=== PATIENT | female | born 1965 | race Caucasian/White ===

== ENCOUNTER → 2018-07-26 10:52 | Outpatient (CLI) | payer OTHER, SELFPAY ==
--- NOTE | 2018-07-26 12:37 | PCM.PN.BLA ---
Progress Note Winsome presents for left stereotactic breast biopsy for faint cluster of calcifications seen in the upper outer quadrant of the left breast. Review of the mammograms from [facility], show a circled area of very faint calcifications. Localization was done on the stereotactic biopsy table in both the LM and the CC view. However, stereotactic images failed to reveal a specific area to biopsy. Therefore patient to be scheduled for short term follow up in 3 months with repeat left breast mammograms.
--- OUTSIDE RECORDS SUMMARY | 2018-09-11 06:07 | XMS RPT_ITS ---
:1965 Author Organization OHIP Care Team Providers Name Role Phone ANNABELLA CARABALLO Referring Unavailable ANNABELLA CARABALLO Attending Unavailable ANNABELLA CARABALLO Referring Unavailable ANNABELLA CARABALLO Referring Unavailable ANGELA REIS Attending Unavailable ANNABELLA CARABALLO Referring Unavailable Angela Reis Attending Unavailable DOCTOR, OUT OF TOWN Primary Care Unavailable PROBLEMS PROBLEMS DATE TYPE CONDITION / CODE ATTENDING STATUS SOURCE 07/04/2018 Active Other abnormal and NA Active [facility] inconclusive Main [place] findings on Repository diagnostic imaging of breast / R92.8(ICD-10) 06/01/2018 Active Encounter for NA Active [facility] screening Main [place] mammogram for Repository malignant neoplasm of breast / Z12.31(ICD-10) 06/07/2016 Active Prediabetes / NA Active [facility] R73.03(ICD-10) [place] Repository PROCEDURES PROCEDURES No Procedure Records FoundRESULTS RESULTS PROGRESS Observed: 07/12/2018 Status: COMPLETED Source: [place] 7:43 PM [facility] REPOSITORY HNO ID: [id number] Author: Angela Reis Service: (none) Author Type: Physician Type: Progress Notes Filed: 07/14/2018 3:12 PM Note Text: Aye Buck 1965 REFERRING PHYSICIAN: Annabella Caraballo MD CHIEF COMPLAINT: No chief complaint on file. HPI: The patient is a 53 year old female presents with abnormal left breast mammograms. Mammograms 07/04/18 - group of fine calcifications in the left breast, stereotactic biopsy recommended Denies palpable breast masses. Denies nipple discharge. Denies previous breast biopsies or surgery. Denies breast pain. No breast or ovarian cancer known in family. PAST MEDICAL HISTORY Diagnosis Date - Abnormal maternal glucose tolerance, antepartum - Allergic rhinitis, cause unspecified + skin testing to dust mites, pollen, - Dysplasia of cervix, unspecified 1996 romel 1 - tx with cryotx; paps normal since - Family history of diabetes mellitus - Human papillomavirus in conditions classified elsewhere and of unspecified site genital and cervical - Lump or mass in breast 11/21/2002 abnl mammo - follow up normla - no bx PAST SURGICAL HISTORY Procedure Laterality Date - COLONOSCOP W/ OR W/O BRSH SPEC 03/22/2017 TA; repeat 5 yrs - COLPOSCOPY W BX CERVIX - CRYO CAUTERY CERVIX 1996 - EXTRACTION ERUPTED TOOTH/EXR Surgical removal of wisdom teeth - NO PROC CODE FOUND age 9 repair of chipped tibia L - REM LESION NEC,HND,SCAL 2.1-3.0CM 06/07/14 Exc. large left occipital scalp ana laura cyst Current Outpatient Prescriptions: Diaphragm Arc-Spring (ORTHO DIAPHRAGM ALL-FLEX 80) 80 mm kit Use vaginally. 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[employer] Social History Main Topics Smoking status: Never Smoker Smokeless tobacco: Never Used Alcohol use: Yes Comment: 2-3x/week Drug use: No Sexual activity: Yes Partners with: Male Other Topics Concern Service No Blood Transfusions No Caffeine Concern No Comment:1-2 daily Occupational Exposure No Hobby Hazards No Sleep Concern Yes Comment:occas terminal insomnia Stress Concern No Weight Concern No Special Diet No Exercise Yes Comment:walking Bike Helmet Yes Seat Belt Yes Self-Exams Yes Social History Narrative medical poa Doris Rebolledo FAMILY HISTORY Problem Relation Age of Onset - Cancer Mother pancreatic - Hypertension Mother - Ischemic Heart Disease Father 67 heart attack then heart surgery - Diabetes Father - Hypertension Father - Diabetes Paternal Grandmother - Stroke Paternal Grandmother - Osteoporosis Other - Cancer Paternal Grandfather metastatic - prinary unknown - Cancer Other ovarian - maternal great aunt - Cancer Maternal Grandmother MM - Stroke Maternal Grandfather - Cancer Other cervical; blood clot; paternal great grandmother - Breast Cancer Other maternal great aunt REVIEW OF SYSTEMS: General - denies fevers Cardiovascular - denies chest pain Pulmonary - denies shortness of breath Gastrointestinal - denies abdominal pain Neurological - denies seizures Genitourinary - denies burning with urination Hematological - denies spontaneous/prolonged bleeding Skin - denies nonhealing skin wounds Musculoskeletal - denies chronic joint/back pain Endocrine - denies diabetes Psychological ? denies hallucinations Obstetrical - menarche onset 14, , first at age 39, breast feeding 2 y, BCP use initially at age 23 for a few years, PHYSICAL EXAMINATION: General: The patient is 53 year old female, well nourished, well hydrated in no acute distress. The patient is oriented to time, place, and person. VITALS: Ht: 5'7 Wt 161# Head ? Normocephalic. EOM intact with sclera clear and no icterus noted. Mouth with mucus membranes moist. Neck - supple with no jugular venous distention noted. Trachea is midline. No carotid bruits noted. No thyroid enlargement or thyroid nodules detected. No masses noted. Chest/breast ? no asymmetry of breasts noted, no suspicious skin lesions noted, no nipple discharge and both nipples everted, nodular dense breast tissue palpated bilaterally, no suspicious lesions palpated Lungs ? clear to auscultation. Normal breath sounds. No rales/rhonchi/wheezing noted. No labored breathing noted, such as retractions. Heart ? normal S1 and S2 auscultated. No rubs/clicks/murmurs noted. Regular rate. Abdomen ? soft and benign. Normal bowel sounds. No abdominal bruits noted. No distention or tympany noted. No masses noted. Extremities ? no calf tenderness noted. No pitting edema noted. Skin ? normal skin integrity. Lymph ? no cervical adenopathy detected, no supraclavicular adenopathy detected, no axillary adenopathy detected Neurological ? gait normal, no focal deficits noted. Psych ? calm and appropriate RADIOLOGIC STUDIES: As Noted Assessment IMPRESSION: abnormal left breast mammograms PLAN: I have discussed the above with the patient. I have reviewed the mammograms with the patient. I have offered left stereotactic breast biopsy at [facility] I have explained the procedure to the patient. I have counseled the patient as to the risks of the procedure, including but not limited to: infection, bleeding, injury to any blood vessels/nerves, scar tissue, wound infections, complications of anesthesia, etc. ? the patient understands. The patient wishes to proceed. I have answered all questions to the patient?s satisfaction and the patient has no further questions. . Diagnoses: (R92.8) Abnormal mammogram of left breast (primary encounter diagnosis) Return to Clinic: The patient is instructed to follow-up with me as per needed after the procedure. Angela Reis MD CNOV Observed: 07/11/2018 Status: COMPLETED Source: [place] 3:30 PM [facility] REPOSITORY Office Visit (GENSWS) AYE BUCK ([id number]) 1965 F Date Time Provider Department 07/11/18 3:30 PM ANGELA REIS During your visit today, we recorded the following information about you: Angela Reis MD 07/14/2018 3:12 PM Signed Aye Buck 1965 REFERRING PHYSICIAN: Annabella Caraballo MD CHIEF COMPLAINT: No chief complaint on file. HPI: The patient is a 53 year old female presents with abnormal left breast mammograms. Mammograms 07/04/18 - group of fine calcifications in the left breast, stereotactic biopsy recommended Denies palpable breast masses. Denies nipple discharge. Denies previous breast biopsies or surgery. Denies breast pain. No breast or ovarian cancer known in family. PAST MEDICAL HISTORY Diagnosis Date - Abnormal maternal glucose tolerance, antepartum - Allergic rhinitis, cause unspecified + skin testing to dust mites, pollen, - Dysplasia of cervix, unspecified 1996 romel 1 - tx with cryotx; paps normal since - Family history of diabetes mellitus - Human papillomavirus in conditions classified elsewhere and of unspecified site genital and cervical - Lump or mass in breast 11/21/2002 abnl mammo - follow up normla - no bx PAST SURGICAL HISTORY Procedure Laterality Date - COLONOSCOP W/ OR W/O BRSH SPEC 03/22/2017 TA; repeat 5 yrs - COLPOSCOPY W BX CERVIX - CRYO CAUTERY CERVIX 1996 - EXTRACTION ERUPTED TOOTH/EXR Surgical removal of wisdom teeth - NO PROC CODE FOUND age 9 repair of chipped tibia L - REM LESION NEC,HND,SCAL 2.1-3.0CM 06/07/14 Exc. large left occipital scalp ana laura cyst Current Outpatient Prescriptions: Diaphragm Arc-Spring (ORTHO DIAPHRAGM ALL-FLEX 80) 80 mm kit Use vaginally. 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[employer] Social History Main Topics Smoking status: Never Smoker Smokeless tobacco: Never Used Alcohol use: Yes Comment: 2-3x/week Drug use: No Sexual activity: Yes Partners with: Male Other Topics Concern Service No Blood Transfusions No Caffeine Concern No Comment:1-2 daily Occupational Exposure No Hobby Hazards No Sleep Concern Yes Comment:occas terminal insomnia Stress Concern No Weight Concern No Special Diet No Exercise Yes Comment:walking Bike Helmet Yes Seat Belt Yes Self-Exams Yes Social History Narrative medical poa Doris Rebolledo FAMILY HISTORY Problem Relation Age of Onset - Cancer Mother pancreatic - Hypertension Mother - Ischemic Heart Disease Father 67 heart attack then heart surgery - Diabetes Father - Hypertension Father - Diabetes Paternal Grandmother - Stroke Paternal Grandmother - Osteoporosis Other - Cancer Paternal Grandfather metastatic - prinary unknown - Cancer Other ovarian - maternal great aunt - Cancer Maternal Grandmother MM - Stroke Maternal Grandfather - Cancer Other cervical; blood clot; paternal great grandmother - Breast Cancer Other maternal great aunt REVIEW OF SYSTEMS: General - denies fevers Cardiovascular - denies chest pain Pulmonary - denies shortness of breath Gastrointestinal - denies abdominal pain Neurological - denies seizures Genitourinary - denies burning with urination Hematological - denies spontaneous/prolonged bleeding Skin - denies nonhealing skin wounds Musculoskeletal - denies chronic joint/back pain Endocrine - denies diabetes Psychological ? denies hallucinations Obstetrical - menarche onset 14, , first at age 39, breast feeding 2 y, BCP use initially at age 23 for a few years, PHYSICAL EXAMINATION: General: The patient is 53 year old female, well nourished, well hydrated in no acute distress. The patient is oriented to time, place, and person. VITALS: Ht: 5'7 Wt 161# Head ? Normocephalic. EOM intact with sclera clear and no icterus noted. Mouth with mucus membranes moist. Neck - supple with no jugular venous distention noted. Trachea is midline. No carotid bruits noted. No thyroid enlargement or thyroid nodules detected. No masses noted. Chest/breast ? no asymmetry of breasts noted, no suspicious skin lesions noted, no nipple discharge and both nipples everted, nodular dense breast tissue palpated bilaterally, no suspicious lesions palpated Lungs ? clear to auscultation. Normal breath sounds. No rales/rhonchi/wheezing noted. No labored breathing noted, such as retractions. Heart ? normal S1 and S2 auscultated. No rubs/clicks/murmurs noted. Regular rate. Abdomen ? soft and benign. Normal bowel sounds. No abdominal bruits noted. No distention or tympany noted. No masses noted. Extremities ? no calf tenderness noted. No pitting edema noted. Skin ? normal skin integrity. Lymph ? no cervical adenopathy detected, no supraclavicular adenopathy detected, no axillary adenopathy detected Neurological ? gait normal, no focal deficits noted. Psych ? calm and appropriate RADIOLOGIC STUDIES: As Noted Assessment IMPRESSION: abnormal left breast mammograms PLAN: I have discussed the above with the patient. I have reviewed the mammograms with the patient. I have offered left stereotactic breast biopsy at [facility] I have explained the procedure to the patient. I have counseled the patient as to the risks of the procedure, including but not limited to: infection, bleeding, injury to any blood vessels/nerves, scar tissue, wound infections, complications of anesthesia, etc. ? the patient understands. The patient wishes to proceed. I have answered all questions to the patient?s satisfaction and the patient has no further questions. . Diagnoses: (R92.8) Abnormal mammogram of left breast (primary encounter diagnosis) Return to Clinic: The patient is instructed to follow-up with me as per needed after the procedure. Angela Reis MD Referring Provider: ANNABELLA CARABALLO [[id number]] Allergies As of Date: 07/11/2018 Noted Allergy Reaction no latex allergy [Other] 05/04/2009 THIMEROSAL 07/28/2005 14 - Other: See Comments Comments: eye irritation Date Reviewed: 07/11/2018 Reviewed by: Valente Jones LPN - Fully Assessed Primary Visit Diagnosis:Abnormal mammogram of left breast [R92.8] Prescriptions as of 07/11/2018 Sig: DIAPHRAGM ARC-SPRING 80 MM KIT Use vaginally. as instructed * CALCIUM-MAGNESIUM 500 MG-250 * and vit d - two a day Problem List As Of Date 07/11/2018 Noted Resolved DELETED 2004 - NO LONGER SPECIFIC [622.1] INVALID FOR*10/17/2006 Backache, unspecified [M54.9] INVALID FOR*01/10/2018 Lump or Mass in Breast [N63.0] INVALID FOR*03/11/2010 LIPOMA [214] INVALID FOR* ALLERGIC RHINITIS NOS [J30.9] INVALID FOR* AMA PRIMIGRAVID-ANTEPARTUM [O09.519] INVALID FOR*03/02/2009 SUPERVIS NORMAL 1ST PREG [Z34.00] INVALID FOR*03/02/2009 Dysplasia of cervix, unspecified [N87.9] INVALID FOR*03/16/2017 Gestational diabetes [O24.419] INVALID FOR*06/07/2016 Premenopausal menorrhagia [N92.4] INVALID FOR* Urinary, incontinence, stress female [N39.3] INVALID FOR* Vitamin D insufficiency [E55.9] INVALID FOR* Family history of diabetes mellitus [Z83.3] Sebaceous cyst [L72.3] INVALID FOR* Pelvic muscle wasting [N81.84] INVALID FOR* History of gestational diabetes [Z86.32] INVALID FOR* Prediabetes [R73.03] INVALID FOR* Personal history of colonic polyps [Z86.010] INVALID FOR* Letter Text Encounter Status:Closed by MD ANGELA REIS on 07/14/18 CNCO Observed: 07/04/2018 Status: COMPLETED Source: [place] 4:49 PM [facility] REPOSITORY HNO ID: [id number] Author: Mammography Coordinator Service: (none) Author Type: Physician Type: Letter Filed: 2018 11:32 PM Note Text: July 04, 2018 PID: [id number] Aye Buck [address] [place] [address] Dear Ms. Buck, Your recent breast imaging exam on 07/04/2018 showed an abnormal area. At this time we recommend further evaluation. This does not necessarily mean that there is a serious problem in your breast, but it should not be ignored. Your mammogram demonstrates that you have dense breast tissue, which could hide abnormalities. Dense breast tissue, in and of itself, is a relatively common condition. Therefore, this information is not provided to cause undue concern; rather, it is to raise your awareness and promote discussion with your health care provider regarding the presence of dense breast tissue in addition to other risk factors. Please contact your physician as soon as possible to discuss the results of this exam and decide what the next steps in your medical care should be. If you have already been notified of these findings, please disregard this letter. Thank you for allowing us to help in meeting your health care needs. Sincerely, Dr. Peña Interpreting Radiologist [facility] (Abnormal) PROGRESS Observed: 07/04/2018 Status: COMPLETED Source: [place] 4:05 PM [facility] REPOSITORY HNO ID: [id number] Author: Radha Barrios Service: (none) Author Type: (none) Type: Progress Notes Filed: 07/04/2018 4:06 PM Note Text: Radiology Service Progress Note PATIENT NAME: Aye Buck DATE OF SERVICE: July 04, 2018 TIME: 4:05 PM PATIENT IDENTITY VERIFICATION COMPLETED USING TWO (2) METHODS: Patient confirmed name verbally and Date of . PATIENT GENDER DATA: Female. status: : No status: NO. PATIENT RELEVANT IMPLANT DATA REVIEWED: Not Applicable RADIOLOGY DEPARTMENT: Women's Health LEFT DIAGNOSTIC MAMMOGRAM PERIPHERAL IV DATA: Not applicable SIGNED BY: Radha Barrios July 04, 2018 4:05 PM [facility] DIAGNOSTIC LT Observed: 07/04/2018 Status: F Source: [place] 3:20 PM [facility] REPOSITORY * * *Final Report* * * DATE OF EXAM: Jul 04 2018 3:20PM [facility] 0621 - [facility] DIAGNOSTIC LT / PROCEDURE REASON: Abnormal mammogram * * * * Physician Interpretation * * * * RESULT: #[id number] - [facility] DIAGNOSTIC LT UNILATERAL LEFT DIGITAL DIAGNOSTIC MAMMOGRAM WITH CAD: 07/04/2018 HISTORY: Abnormal Mammogram /Call back/ Left Diagnostic Mammogram. RESULT: TECHNIQUE: The study was acquired using full field digital technology and interpreted from soft copy. Current study was also evaluated with a Computer Aided Detection (CAD). Comparison is made to exams dated: 06/01/2018 mammogram, 04/12/2017 mammogram - [facility], 03/29/2017 mammogram - [facility], and 03/25/2016 mammogram - [facility]. The tissue of left breast is heterogeneously dense. This may lower the sensitivity of mammography. There are a grouped fine calcifications in the left breast at 1 o'clock middle depth. No other significant masses or calcifications are seen in the breast. IMPRESSION: SUSPICIOUS OF MALIGNANCY The grouped fine calcifications in the left breast are at a low suspicion for malignancy. A stereotactic biopsy is recommended. SUMMARY: Findings and recommendations were discussed with the patient. Prior to leaving the department the patient scheduled a biopsy consultation with Dr. Reis for 07-11-18 at 1530 hrs. Jose gatica/santo:07/04/2018 16:49:00 Platform Material Handling Supervisor(s): Radha Neville RT(R)(M), [facility] letter sent: Abnormal Mammogram BI-RADS: 4a Suspicious abnormality - low suspicion for malignancy Multiple national specialty organizations have released breast cancer screening guidelines for women at average risk for developing breast cancer - guidelines that are based on both evidence and opinion, yet differ on when to start and how often to screen for breast cancer. With representation from Breast Imaging, Internal Medicine, Women's Health, Family Medicine, and Medical/Surgical Oncology, the [facility] has carefully reviewed the data and reached the following consensus: 1) All women should engage in shared decision-making with their providers to decide when to start and how often to screen; 2) All women should have the opportunity to start screening mammography at age 40; 3) For women ages 45-55, we recommend annual screening mammograms; 4) For women ages 55 and over, we support both the transition from an annual to a biennial interval if this aligns more with patient's values and preferences, or continuation with annual screening; 5) All women should discuss with their providers when to stop screening mammograms. General Manager: Santo Transcribe Date/Time: Jul 04 2018 3:03P Dictated by: JOSE PEÑA MD This examination was interpreted and the report reviewed and electronically signed by: JOSE PEÑA MD on Jul 04 2018 4:49PM EST [id number] CNCO Observed: 06/01/2018 Status: COMPLETED Source: [place] 11:14 AM [facility] REPOSITORY HNO ID: [id number] Author: Mammography Coordinator Service: (none) Author Type: Physician Type: Letter Filed: 06/04/2018 11:32 PM Note Text: June 01, 2018 PID: [id number] Aye Buck [address] [place] [address] Dear Ms. Buck, Your recent breast imaging exam on 06/01/2018 showed a possible finding that requires additional imaging studies for a complete evaluation. Most such findings are probably benign (not cancer). Please call [phone] or [phone]: [phone] to schedule an appointment for your additional imaging if you have not already done so. Your mammogram demonstrates that you have dense breast tissue, which could hide abnormalities. Dense breast tissue, in and of itself, is a relatively common condition. Therefore, this information is not provided to cause undue concern; rather, it is to raise your awareness and promote discussion with your health care provider regarding the presence of dense breast tissue in addition to other risk factors. Your breast images and report will be kept on file here as part of your permanent medical record and are available for your continuing care. Thank you for allowing us to help in meeting your health care needs. Sincerely, Dr. Dhillon Interpreting Radiologist [facility] (Additional imaging) JANICE SCREENING W VISHNU Observed: 06/01/2018 Status: F Source: [place] 7:57 AM [facility] REPOSITORY * * *Final Report* * * DATE OF EXAM: Jun 01 2018 7:57AM [facility] [id number] - [facility] SCREENING W VISHNU / PROCEDURE REASON: Encounter for screening mammogram for malignant neoplasm of breast * * * * Physician Interpretation * * * * RESULT: #[id number] - [facility] SCREENING W VISHNU BILATERAL DIGITAL SCREENING MAMMOGRAM TOMOSYNTHESIS WITH CAD: 06/01/2018 HISTORY: Encounter For Screening Mammogram For Malignant Neoplasm Of Breast\ Screening Mammogram with VISHNU - patient reports NO breast symptoms /priors available for comparison. RESULT: TECHNIQUE: The study was acquired using full field digital technology and interpreted from soft copy. Digital Breast Tomosynthesis (DBT) images were obtained and used to assist in the interpretation of this examination. Current study was also evaluated with a Computer Aided Detection (CAD). Comparison is made to exams dated: 04/12/2017 mammogram - [facility], 03/29/2017 mammogram - [facility], 03/25/2016 mammogram - [facility], and 03/24/2014 mammogram - [facility]. The tissue of both breasts is heterogeneously dense. This may lower the sensitivity of mammography. There are multiple calcifications in the left breast upper outer aspect. No other significant masses, calcifications, or other findings are seen in either breast. IMPRESSION: INCOMPLETE: NEEDS ADDITIONAL IMAGING EVALUATION The multiple calcifications in the left breast are indeterminate. Magnification views are recommended. Delma Dhillon M.D. /santo:06/01/2018 11:14:55 Platform Material Handling Supervisor: Kate BARRIOS(Sierra)(Adwoa), [facility] letter sent: Additional Imaging Needed Mammogram BI-RADS: 0 Incomplete: needs additional imaging evaluation If this report indicates you need additional imaging, and it has NOT yet been performed, please call , to schedule. We sincerely thank you for choosing the [facility] for your breast imaging needs. Multiple national specialty organizations have released breast cancer screening guidelines for women at average risk for developing breast cancer - guidelines that are based on both evidence and opinion, yet differ on when to start and how often to screen for breast cancer. With representation from Breast Imaging, Internal Medicine, Women's Health, Family Medicine, and Medical/Surgical Oncology, the [facility] has carefully reviewed the data and reached the following consensus: 1) All women should engage in shared decision-making with their providers to decide when to start and how often to screen; 2) All women should have the opportunity to start screening mammography at age 40; 3) For women ages 45-55, we recommend annual screening mammograms; 4) For women ages 55 and over, we support both the transition from an annual to a biennial interval if this aligns more with patient's values and preferences, or continuation with annual screening; 5) All women should discuss with their providers when to stop screening mammograms. General Manager: Santo Transcribe Date/Time: Jun 01 2018 7:57A Dictated by: DELMA DHILLON MD This examination was interpreted and the report reviewed and electronically signed by: DELMA DHILLON MD on Jun 01 2018 11:14AM EST [id number] HPV W/GENOTYPE Collected: 01/10/2018 Status: F Source: [place] 9:49 AM [facility] REPOSITORY TYPE CODE TESTS RESULT OUT OF REFERENCE UNITS RANGE LAB HPVT16 HPV HighRisk Negative for Type 16 HPV DNA high risk type 16 by PCR. LAB HPVT18 HPV HighRisk Negative for Type 18 HPV DNA high risk type 18 by PCR. LAB HPVHRO HPV HighRisk Negative for Other HPV DNA high risk types: 31,33,35,39,45 ,51,52,56,58,5 9,66,68 by PCR. Result Comment: This test was developed and its performance characteristics determined by [facility]'s [facility] Pathology and Laboratory [facility] [place] ([facility]). It has not been cleared or approved by the FDA. -[facility] is regulated under CLIA as qualified to perform high-complexity testing. This test is used for clinical purposes. It should not be regarded as inv estigational or for research. Performed By: #### HPVHRR #### [facility] [address] [place], [place] [address] CYTOLOGY Observed: 01/10/2018 Status: C Source: [place] 9:49 AM [facility] REPOSITORY ADDITIONAL PROCEDURES PRESENT Specimen originated from [facility] Specimen #: [id number] Submitting Physician: Adwoa BROOKE.D. ([id number]) SPECIMEN SUBMITTED A: CERVICAL, SCREENING, FLUID FINAL DIAGNOSIS A. CERVICAL, SCREENING, FLUID Satisfactory for interpretation. Negative for intraepithelial lesion or malignancy. This specimen has been analyzed by the ThinPrep Imaging System, an automated imaging and review system, which assists the laboratory in evaluating cells on ThinPrep Pap tests. Following automated imaging, selected soto from every slide are reviewed by a automatic lathe setter. JENNIFER Turcios(ASCP) (Electronic Signature) ADDITIONAL PROCEDURE(S) HUMAN PAPILLOMA VIRUS Date Ordered: 01/11/2018 Date Reported: 01/12/2018 Procedure Results and Interpretation Negative for HPV DNA high risk type 16 by PCR. Negative for HPV DNA high risk type 18 by PCR. Negative for HPV DNA high risk types: 31,33,35,39,45,51,52,56,58,59,66,68 by PCR. This test was developed and its performance characteristics determined by [facility]'s [facility] Pathology and Laboratory [facility] [place] ([facility]). It has not been cleared or approved by the FDA. RT-[facility] is regulated under CLIA as qualified to perform high-complexity testing. This test is used for clinical purposes. It should not be regarded as investigational or for research. CLINICAL DATA ROUTINE EXAM, HPV Testing: Yes, automatic HPV patients over 30 Date of Last Menstrual Period: 2-3 weeks ago STAINS A: CERVICAL, SCREENING, FLUID THIN PREP YOUTH DEVELOPMENT PROFESSIONAL Lara Blake M.D., Air Table Operator Date of Report: 01/15/2018 Date of Procedure: 01/10/2018 Date of Receipt: 01/11/2018 Submitted by: ANNABELLA PAN M.D. ([id number]) Location: [facility] Diagnostic interpretation performed at [facility], [address], [place] [address]. The Pap Smear is a screening test for cervical cancer. False negative results occur with all screening tests, emphasizing the need for rescreening at recommended intervals, and clinical correlation. 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 denies vaginal itching, irritation, discharge, odor, painful intercourse, postcoital bleeding denies abnormal bleeding denies hot flashes, vaginal dryness PAST MEDICAL HISTORY Diagnosis Date - Abnormal maternal glucose tolerance, antepartum - Allergic rhinitis, cause unspecified + skin testing to dust mites, pollen, - Dysplasia of cervix, unspecified 1996 romel 1 - tx with cryotx; paps normal since - Family history of diabetes mellitus - Human papillomavirus in conditions classified elsewhere and of unspecified site genital and cervical - Lump or mass in breast 11/21/2002 abnl mammo - follow up normla - no bx PAST SURGICAL HISTORY Procedure Laterality Date - COLONOSCOP W/ OR W/O [facility] SPEC 03/22/2017 TA; repeat 5 yrs - COLPOSCOPY W BX CERVIX - CRYO CAUTERY CERVIX 1996 - EXTRACTION ERUPTED TOOTH/EXR Surgical removal of wisdom teeth - NO PROC CODE FOUND age 9 repair of chipped tibia L - REM LESION NEC,HND,SCAL 2.1-3.0CM 06/07/14 Exc. large left occipital scalp ana laura cyst FAMILY HISTORY Problem Relation Age of Onset - Cancer Mother pancreatic - Hypertension Mother - Ischemic Heart Disease Father 67 heart attack then heart surgery - Diabetes Father - Hypertension Father - Diabetes Paternal Grandmother - Stroke Paternal Grandmother - Osteoporosis Other - Cancer Paternal Grandfather metastatic - prinary unknown - Cancer Other ovarian - maternal great aunt - Cancer Maternal Grandmother MM - Stroke Maternal Grandfather - Cancer Other cervical; blood clot; paternal great grandmother - Breast Cancer Other maternal great aunt Social History Marital status: Spouse name: Doris Years of education: Number of children: 1 Occupational History 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 [employer] Social History Main Topics Smoking status: Never Smoker Smokeless tobacco: Never Used Alcohol use: Yes Comment: 2-3x/week Drug use: No Sexual activity: Yes Partners with: Male Other Topics Concern Service No Blood Transfusions No Caffeine Concern No Comment:1-2 daily Occupational Exposure No Hobby Hazards No Sleep Concern Yes Comment:occas terminal insomnia Stress Concern No Weight Concern No Special Diet No Exercise Yes Comment:walking Bike Helmet Yes Seat Belt Yes Self-Exams Yes Social History Narrative medical poa 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 aflb 40 h/o cryotx 1996, paps normal since Sexual history: Contraceptive method: diaphragm BONE Calcium intake: Dietary yes , Supplements yes Vitamin D supplements: yes in supplement Personal History of fracture:No ? BREAST Cammy: 1.2% and 12.8% ? CV 10 year risk low ACTIVE PROBLEM LIST Lipoma Allergic Rhinitis, Cause Unspecified Premenopausal Menorrhagia Urinary, Incontinence, Stress Female Vitamin D Insufficiency Family History of Diabetes Mellitus Sebaceous Cyst Pelvic Muscle Wasting History of Gestational Diabetes Prediabetes DPOA/Living will: No No Latex Allergy [Other]; Thimerosal Medications: reviewed as above ROS: GENERAL: weight is stable Denies breast ssxs call if symptoms worsen or fail to improve as expected EXAM: BP 117/82 Pulse 73 Ht 170.2 cm (5' 7) Wt 73 kg (161 lb) LMP (LMP Unknown) BMI 25.22 kg/m? APPEARANCE: Well appearing, alert, in no acute distress, well-hydrated, well nourished. EYES: PERRLA, conjunctiva and sclera normal. THROAT: normal, no erythema NECK: Supple, no adenopathy; thyroid symmetric, normal size, no bruits HEART: RRR with normal S1 and S2, no murmurs, no gallops, no JVD appreciated LUNG: clear to auscultation BREAST FEMALE: Symmetrical, normal consistency without masses., No dimpling or skin changes, Normal nipples without discharge and no axillary lymphadenopathy ABDOMEN: bowel sounds normoactive, no bruits, soft, non-tender, non-distended, without organomegaly or palpable masses, no tenderness to palpation FEMALE: Normal external genitalia, normal vagina and normal vaginal tone, normal cervix, uterus normal size and firm consistency, nontender and normal adnexa without tenderness BACK: no pain to palpation EXTREMITIES : Normal, No deformities, No skin discoloration, No edema and Normal pulses bilaterally. SKIN: Skin color, texture, turgor normal, no suspicious rashes or lesions Assessment / Plan: ASSESSMENT/PLAN: 1. History of gestational diabetes - ICD9: V12.21, ICD10: Z86.32 (primary diagnosis) 2. Family history of diabetes mellitus - ICD9: V18.0, ICD10: Z83.3 3. Prediabetes - ICD9: 790.29, ICD10: R73.03 normalized A1C continue increased activity, weight loss attempts fu and labs in one year 4. Premenopausal menorrhagia - ICD9: 627.0, ICD10: N92.4 imrpoved early menopausal transition I reviewed with her natural course of late menopausal transition and menopause Distinguish that from abnormal bleeding that requires evaluation Polyp of colon noted on screening colonoscopy age 51 BP colonoscopy age 56 6. Cervical cancer screening - ICD9: V76.2, ICD10: Z12.4 normal cotests following treatment for ROMEL 1 with colposcopy - PAP FLUID CERVICAL SCREENING 7. Screening breast examination - ICD9: V76.10, ICD10: Z12.31 10. Screening mammogram, encounter for - ICD9: V76.12, ICD10: Z12.31 She is average risk, heterogeneous breast density - JANICE SCREENING W VISHNU - Completed breast exam - Follow up for annual exam in one year. Recommend annual mammogram through age 55, then every one?2 years 8. Routine adult health maintenance - ICD9: V70.0, ICD10: Z00.00 9. Need for Tdap vaccination - ICD9: V06.1, ICD10: Z23 - TDAP VACCINE AGE 7+ IM Counseled: Target BMI: < 25 Aerobic exercise 150 minutes per week PAP/HPV every 5 years Annual influenza vaccine Annabella Caraballo MD CNOV Observed: 01/10/2018 Status: COMPLETED Source: [place] 9:00 AM [facility] REPOSITORY [facility] AYE BUCK ([id number]) 1965 F Date Time Provider Department 01/10/18 9:00 AM ANNABELLA CARABALLO During your visit today, we recorded the following information about you: Pulse Blood pressure Weight Height 73/minute 117/82 73 kg 1.702 m Annabella Caraballo MD 01/10/2018 5:26 PM Signed Aye Buck is a 52 year old female that presents for complete office evaluation: 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 denies vaginal itching, irritation, discharge, odor, painful intercourse, postcoital bleeding denies abnormal bleeding denies hot flashes, vaginal dryness PAST MEDICAL HISTORY Diagnosis Date - Abnormal maternal glucose tolerance, antepartum - Allergic rhinitis, cause unspecified + skin testing to dust mites, pollen, - Dysplasia of cervix, unspecified 1996 romel 1 - tx with cryotx; paps normal since - Family history of diabetes mellitus - Human papillomavirus in conditions classified elsewhere and of unspecified site genital and cervical - Lump or mass in breast 11/21/2002 abnl mammo - follow up normla - no bx PAST SURGICAL HISTORY Procedure Laterality Date - COLONOSCOP W/ OR W/O [facility] SPEC 03/22/2017 TA; repeat 5 yrs - COLPOSCOPY W BX CERVIX - CRYO CAUTERY CERVIX 1996 - EXTRACTION ERUPTED TOOTH/EXR Surgical removal of wisdom teeth - NO PROC CODE FOUND age 9 repair of chipped tibia L - REM LESION NEC,HND,SCAL 2.1-3.0CM 06/07/14 Exc. large left occipital scalp ana laura cyst FAMILY HISTORY Problem Relation Age of Onset - Cancer Mother pancreatic - Hypertension Mother - Ischemic Heart Disease Father 67 heart attack then heart surgery - Diabetes Father - Hypertension Father - Diabetes Paternal Grandmother - Stroke Paternal Grandmother - Osteoporosis Other - Cancer Paternal Grandfather metastatic - prinary unknown - Cancer Other ovarian - maternal great aunt - Cancer Maternal Grandmother MM - Stroke Maternal Grandfather - Cancer Other cervical; blood clot; paternal great grandmother - Breast Cancer Other maternal great aunt Social History Marital status: Spouse name: Doris Years of education: Number of children: 1 Occupational History 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 [employer] Social History Main Topics Smoking status: Never Smoker Smokeless tobacco: Never Used Alcohol use: Yes Comment: 2-3x/week Drug use: No Sexual activity: Yes Partners with: Male Other Topics Concern Service No Blood Transfusions No Caffeine Concern No Comment:1-2 daily Occupational Exposure No Hobby Hazards No Sleep Concern Yes Comment:occas terminal insomnia Stress Concern No Weight Concern No Special Diet No Exercise Yes Comment:walking Bike Helmet Yes Seat Belt Yes Self-Exams Yes Social History Narrative medical poa 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 aflb 39 h/o cryotx 1996, paps normal since Sexual history: Contraceptive method: diaphragm BONE Calcium intake: Dietary yes , Supplements yes Vitamin D supplements: yes in supplement Personal History of fracture:No ? BREAST Cammy: 1.2% and 12.8% ? CV 10 year risk low ACTIVE PROBLEM LIST Lipoma Allergic Rhinitis, Cause Unspecified Premenopausal Menorrhagia Urinary, Incontinence, Stress Female Vitamin D Insufficiency Family History of Diabetes Mellitus Sebaceous Cyst Pelvic Muscle Wasting History of Gestational Diabetes Prediabetes DPOA/Living will: No No Latex Allergy [Other]; Thimerosal Medications: reviewed as above ROS: GENERAL: weight is stable Denies breast ssxs call if symptoms worsen or fail to improve as expected EXAM: BP 117/82 Pulse 73 Ht 170.2 cm (5' 7) Wt 73 kg (161 lb) LMP (LMP Unknown) BMI 25.22 kg/m? APPEARANCE: Well appearing, alert, in no acute distress, well-hydrated, well nourished. EYES: PERRLA, conjunctiva and sclera normal. THROAT: normal, no erythema NECK: Supple, no adenopathy; thyroid symmetric, normal size, no bruits HEART: RRR with normal S1 and S2, no murmurs, no gallops, no JVD appreciated LUNG: clear to auscultation BREAST FEMALE: Symmetrical, normal consistency without masses., No dimpling or skin changes, Normal nipples without discharge and no axillary lymphadenopathy ABDOMEN: bowel sounds normoactive, no bruits, soft, non-tender, non-distended, without organomegaly or palpable masses, no tenderness to palpation FEMALE: Normal external genitalia, normal vagina and normal vaginal tone, normal cervix, uterus normal size and firm consistency, nontender and normal adnexa without tenderness BACK: no pain to palpation EXTREMITIES : Normal, No deformities, No skin discoloration, No edema and Normal pulses bilaterally. SKIN: Skin color, texture, turgor normal, no suspicious rashes or lesions Assessment / Plan: ASSESSMENT/PLAN: 1. History of gestational diabetes - ICD9: V12.21, ICD10: Z86.32 (primary diagnosis) 2. Family history of diabetes mellitus - ICD9: V18.0, ICD10: Z83.3 3. Prediabetes - ICD9: 790.29, ICD10: R73.03 normalized A1C continue increased activity, weight loss attempts fu and labs in one year 4. Premenopausal menorrhagia - ICD9: 627.0, ICD10: N92.4 imrpoved early menopausal transition I reviewed with her natural course of late menopausal transition and menopause Distinguish that from abnormal bleeding that requires evaluation Polyp of colon noted on screening colonoscopy age 51 BP colonoscopy age 56 6. Cervical cancer screening - ICD9: V76.2, ICD10: Z12.4 normal cotests following treatment for ROMEL 1 with colposcopy - PAP FLUID CERVICAL SCREENING 7. Screening breast examination - ICD9: V76.10, ICD10: Z12.31 10. Screening mammogram, encounter for - ICD9: V76.12, ICD10: Z12.31 She is average risk, heterogeneous breast density - JANICE SCREENING W VISHNU - Completed breast exam - Follow up for annual exam in one year. Recommend annual mammogram through age 55, then every one?2 years 8. Routine adult health maintenance - ICD9: V70.0, ICD10: Z00.00 9. Need for Tdap vaccination - ICD9: V06.1, ICD10: Z23 - TDAP VACCINE AGE 7+ IM Counseled: Target BMI: < 25 Aerobic exercise 150 minutes per week PAP/HPV every 5 years Annual influenza vaccine MD Annabella Clark MD 01/10/2018 9:28 AM Signed [employer] Referring Provider: SELF [[id number]] Allergies As of Date: 01/10/2018 Noted Allergy Reaction no latex allergy [Other] 05/04/2009 THIMEROSAL 07/28/2005 14 - Other: See Comments Comments: eye irritation Date Reviewed: 01/10/2018 Reviewed by: Verito Maurice Ma - Fully Assessed Reason for Visit: Physical [83] Primary Visit Diagnosis:History of gestational diabetes [Z86.32] Other Visit Diagnoses:Family history of diabetes mellitus [Z83.3] Prediabetes [R73.03] Premenopausal menorrhagia [N92.4] Cervical cancer screening [Z12.4] Screening breast examination [Z12.31] Routine adult health maintenance [Z00.00] Need for Tdap vaccination [Z23] Screening mammogram, encounter for [Z12.31] Personal history of colonic polyps [Z86.010] Order(s):PAP FLUID CERVICAL SCREENING [[id number]] Order #: [id number] TDAP VACCINE AGE 7+ IM [[id number]] Order #: [id number] JANICE SCREENING W VISHNU [[id number]] Order #: [id number] FUTURE Prescriptions as of 01/10/2018 Sig: DIAPHRAGM ARC-SPRING 80 MM KIT Use vaginally. as instructed * CALCIUM-MAGNESIUM 500 MG-250 * and vit d - two a day Problem List As Of Date 01/10/2018 Noted Resolved DELETED 2004 - NO LONGER SPECIFIC [622.1] INVALID FOR*10/17/2006 Backache, unspecified [M54.9] INVALID FOR*01/10/2018 Lump or Mass in Breast [N63.0] INVALID FOR*03/11/2010 LIPOMA [214] INVALID FOR* ALLERGIC RHINITIS NOS [J30.9] INVALID FOR* AMA PRIMIGRAVID-ANTEPARTUM [O09.519] INVALID FOR*03/02/2009 SUPERVIS NORMAL 1ST PREG [Z34.00] INVALID FOR*03/02/2009 Dysplasia of cervix, unspecified [N87.9] INVALID FOR*03/16/2017 Gestational diabetes [O24.419] INVALID FOR*06/07/2016 Premenopausal menorrhagia [N92.4] INVALID FOR* Urinary, incontinence, stress female [N39.3] INVALID FOR* Vitamin D insufficiency [E55.9] INVALID FOR* Family history of diabetes mellitus [Z83.3] Sebaceous cyst [L72.3] INVALID FOR* Pelvic muscle wasting [N81.84] INVALID FOR* History of gestational diabetes [Z86.32] INVALID FOR* Prediabetes [R73.03] INVALID FOR* Personal history of colonic polyps [Z86.010] INVALID FOR* Other instructions from your clinician: [employer] Disposition: Return in about 13 months (around 02/10/2019). Follow-up and Disposition History Recorded Encounter Status:Closed by ANNABELLA CARABALLO MD on 01/10/18 HEMOGLOBIN A1C Collected: 10/26/2017 Status: F Source: [place] 7:50 AM [facility] REPOSITORY TYPE CODE TESTS RESULT OUT OF REFERENCE UNITS RANGE LAB HGBA1C 4.3-5.6 % Hemoglobin A1c 5.6 LAB HBA0 mg/dL Est. Average Glucose 114 Result Comment: eAG: (Estimated average glucose) is a calculated value from HgbA1c and is consumer sales representative of the average blood glucose level in the last 2-3 month period. Performed By: #### HBA1C, CMP, LIPB, CBC #### [facility] [address] [place] [id number] COMP METABOLIC PANEL Collected: 10/26/2017 Status: F Source: [place] 7:50 AM [facility] REPOSITORY TYPE CODE TESTS RESULT OUT OF REFERENCE UNITS RANGE LAB TP 6.3-8.0 g/dL Protein, Total 7.5 LAB ALB 3.9-4.9 g/dL Albumin 4.4 LAB CA 8.5-10.2 mg/dL Calcium, Total 9.5 LAB TBIL 0.2-1.3 mg/dL Bilirubin, Total 0.5 LAB ALKP 32-117 U/L Alkaline Phosphatase 74 LAB AST 13-35 U/L AST 25 LAB GLU 74-99 mg/dL Glucose 83 Result Comment: The [place] [employer] (ADA) provides guidance for cutoff values for fasting glucose and random glucose. The ADA defines fasting as no caloric intake for at least 8 hours. Fas ting plasma glucose results between 100 to 125 mg/dL indicate increased risk for diabetes (prediabetes). Fasting plasma glucose results greater than or equal to 126 mg/dL meet the criteria for diagnosis of diabetes. In the absence of unequivocal hyperglycemia, results should be confirmed by repeat testing. In a patient with classic symptoms of hyperglycemia or hyperglycemic crisis, random plasma glucose results greater than or equal to 200 mg/dL meet the criteria for diagnosis of diabetes. Reference: Standards of Medical Care in Diabetes 2016, [place] [employer]. Diabetes Care. 2016.39(Suppl 1). LAB BUN 7-21 mg/dL BUN 14 LAB CRET 0.58-0.96 mg/dL Creatinine 0.95 LAB NA 136-144 mmol/L Sodium 141 LAB K 3.7-5.1 mmol/L Potassium 3.9 LAB CL 97-105 mmol/L Chloride 101 LAB CO2 22-30 mmol/L CO2 25 LAB AGAP 9-18 mmol/L Anion Gap 15 LAB ALT 7-38 U/L ALT 15 LAB GFRAA eGFR- Amer. >60 LAB GFRNAA . eGFR-All Other Races >60 Result Comment: eGFR (Estimated GFR) Units of measure: mL/min/1.73 meters squared eGFR is derived from the reexpressed MDRD Study equation using the following parameters: serum creatinine, age, gender and race. The creatinine assay has been calibrated to be traceable to IDMS. An eGFR <60 mL/min/1.73m2 for >3 months is consistent with chronic kidney disease. Refer to KDOQI guidelines for clinical interpretation. In patients with unstable renal function, e.g. those with acute kidney injury, the eGFR may not accurately reflect actual GFR. Performed By: #### HBA1C, CMP, LIPB, CBC #### [facility] [address] [place], [place] [address] LIPID PANEL, BASIC Collected: 10/26/2017 Status: F Source: [place] 7:50 AM [facility] REPOSITORY TYPE CODE TESTS RESULT OUT OF REFERENCE UNITS RANGE LAB CHOL <200 mg/dL Cholesterol 134 Result Comment: <200 mg/dL, Desirable 200-239 mg/dL, Borderline high >239 mg/dL, High LAB TRIGLY <150 mg/dL Triglyceride 65 Result Comment: <150 mg/dL, Normal 150-199 mg/dL, Borderline high 200-499 mg/dL, High >499 mg/dL, Very high LAB HDL >39 mg/dL HDL-Cholesterol 65 Result Comment: 40-59 mg/dL, Acceptable >59 mg/dL, High: Negative risk factor for coronary heart disease <40 mg/dL, Low: Positive risk factor for coronary heart disease LAB LDL <100 mg/dL LDL-Cholesterol 56 Result Comment: <100 mg/dL, Optimal 100-129 mg/dL, Near optimal/above optimal 130-159 mg/dL, Borderline high 160-189 mg/dL, High >189 mg/dL, Very high Secondary prevention optimal LDL Cholesterol levels are recommended to be < 70 mg/dL LAB NONHDL <130 mg/dL Non HDL Cholesterol 69 Result Comment: <130 mg/dL, Optimal 130-159 mg/dL, Near optimal/above optimal 160-189 mg/dL, Borderline high 190-219 mg/dL, High >219 mg/dL, Very high Secondary prevention optimal non HDL Cholesterol levels are recommended to be < 100 mg/dL LAB FT hrs Fasting Time 13 LAB VLDL <30 mg/dL VLDL Cholesterol 13 LAB TCHDL <5.10 TC:HDL Ratio 2.06 LAB LDLHDL <2.54 LDL:HDL Ratio 0.86 Result Comment: Reference: 1. National Cholesterol Education Program ATP III Guideline At-A-Glance Quick Desk Reference: National Heart, Lung, and Blood [place]. National Institutes of Health. 2001: NIH Publication No. 01-3305. 2. An International Atherosclerosis Society position paper: global recommendations for the management of dyslipidemia: executive summary, Atherosclerosis. 2014: 232(2):410-413. Performed By: #### HBA1C, CMP, LIPB, CBC #### [facility] [address] [place] [id number] CBC Collected: 10/26/2017 Status: F Source: [place] 7:50 AM [facility] REPOSITORY TYPE CODE TESTS RESULT OUT OF REFERENCE UNITS RANGE LAB WBC 3.70-11.00 k/uL WBC 6.35 LAB RBC 3.90-5.20 m/uL RBC 4.60 LAB HGB 11.5-15.5 g/dL Hemoglobin 13.8 LAB HCT 36.0-46.0 % Hematocrit 43.5 LAB MCV 80.0-100.0 fL MCV 94.6 LAB MCH 26.0-34.0 pG MCH 30.0 LAB MCHC 30.5-36.0 g/dL MCHC 31.7 LAB RDWCV 11.5-15.0 % RDW-CV 12.5 LAB PLTCT 150-400 k/uL Platelet Count 268 LAB MPV 9.0-12.7 fL MPV 10.9 LAB ABSNUC <0.01 k/uL Absolute nRBC <0.01 Performed By: #### HBA1C, CMP, LIPB, CBC #### [facility] [address] [place], [place] [address] ALLERGIES ALLERGIES DATE TYPE / CODE NAME / CODE REACTION SEVERITY SOURCE 05/04/2009 Miscellaneous OTHER [place] Allergy/[id number]([facility] Main NOMED CT) [place] Repository 07/28/2005 DRUG THIMEROSAL OTHER: SEE [place] INGREDI/[id number]([facility] Main NOMED CT) [place] Repository ENCOUNTERS ENCOUNTERS ADMIT/DISCHARGE ACCOUNT ADMITTING ENCOUNTER LOCATION SOURCE NUMBER CLASS 07/26/2018 [id number] [facility] ing:[facility] Repository 07/11/2018/07/16/20 [id number] Ambulatory [address] Repository 07/04/2018/07/04/20 [id number] Ambulatory [address] Repository 06/01/2018/06/04/20 [id number] Ambulatory [address] Repository 01/10/2018/01/12/20 [id number] Ambulatory [address] Repository 10/26/2017/10/27/19 [id number] Ambulatory [address] Repository PAYERS PAYERS ENCOUNTER GUARANTOR PAYER SUBSCRIBER SOURCE 07/26/2018 DORIS Primary DORISRANULFO [id number] Insurance:MEDICAL BRANNERDOB: [facility] [id number] Number: Repository [id number]: ([phone]) [id number] [phone] () Date:[id number] [place], [place] [id number]: 07/26/2018 Secondary NOT GIVENUNK Richelle Insurance:SELF PAY [facility] Number: Effective Repository Date:2018-07-11
== END ==
PROVIDERS: Visit Provider Surgery
DX: R92.0 Mammographic microcalcification found on diagnostic imaging of breast (principal)
CPT/HCPCS: 19081